=== PATIENT | female | born 1985 | race Hispanic/Latino ===

== ENCOUNTER 2022-06-11 17:53 | Emergency (ER) | payer OTHER | END 2022-06-11 19:14 | disposition home or self-care (01) | LOC: CSHERS 17:53 | DX: K02.9 Dental caries, unspecified (principal); K21.9 Gastro-esophageal reflux disease without esophagitis; E03.9 Hypothyroidism, unspecified | CPT/HCPCS: 99282 ==

== ENCOUNTER 2023-08-04 15:48 | Emergency (ER) | payer OTHER ==
[2023-08-04 17:29] LABS: ALT (SGPT) 99 U/L (8-55); AST (SGOT) 41 U/L (5-34); Albumin 4.7 g/dL (3.5-5.0); Alkaline Phosphatase 86 U/L (40-110); Anion Gap 12 mmol/L (10-20); BUN (Urea Nitrogen) 10 mg/dL (7.0-18.7); Bilirubin, Total 0.5 mg/dL (0.2-1.2); Calc. Creatinine Clearance 0 mL/min (70-130); Calcium 9.8 mg/dL (7.8-10.44); Carbon Dioxide 30 mmol/L (22-29); Chloride 104 mmol/L (98-107); Estimated GFR 97; Globulin 2.3 g/dL (2.4-3.5); Glucose 83 mg/dL (70-105); Potassium 4.6 mmol/L (3.5-5.1); Sodium 141 mmol/L (136-145)
[2023-08-04 17:33] LABS: #Basophils 0.1 10x3/uL (0.0-0.2); #Eosinphils 0.1 10x3/uL (0.0-0.5); #Monocytes 0.5 10x3/uL (0.0-1.1); #Neutrophils 3.8 10x3/uL (1.5-8.4); %Basophils 0.6 % (0.0-2.0); %Eosinophils 1.6 % (0.0-6.0); %Lymphocytes 50.6 % (18.0-47.0); %Monocytes 5.3 % (0.0-10.0); %Neutrophils 41.7 % (40.0-75.0); Hematocrit 42.8 % (34.9-44.5); Hemoglobin 14.6 g/dL (12.0-15.5); Mean Corpuscular HGB CONC 34.1 g/dL (32.0-36.0); Mean Corpuscular Hemoglobin 30.5 pg (27.0-33.0); Mean Corpuscular Volume 89.5 fl (81.6-98.3); Mean Platelet Volume 10.7 fl (7.4-10.4); Platelet Count 262 10x3/uL (150-450); RBC Distribution Width 12.4 % (11.5-14.5); Red Blood Cell (RBC) Count 4.78 10x6/uL (3.90-5.03)
[2023-08-04 17:36] LABS: Troponin I Less than 0.010 ng/mL (< 0.028)
== END 2023-08-04 18:44 | disposition home or self-care (01) ==
LOC: CSHERS 15:48
DX: R07.9 Chest pain, unspecified (principal); K21.9 Gastro-esophageal reflux disease without esophagitis; E03.9 Hypothyroidism, unspecified
CPT/HCPCS: 36415; 71045; 80053; 84484; 85025; 93005